=== PATIENT | male | born 1955 | race Caucasian/White ===

== ENCOUNTER → 2022-01-26 08:45 | Outpatient (BNVA) | payer OTHER, SELFPAY | PROVIDERS: Family Provider Family Medicine; Visit Provider Family Medicine | DX: E21.3 Hyperparathyroidism, unspecified (principal); M10.9 Gout, unspecified; R73.9 Hyperglycemia, unspecified; I10 Essential (primary) hypertension | CPT/HCPCS: 80053; 80061; 83036; 84550 ==

== ENCOUNTER 2022-08-12 12:22 | Outpatient (CLI) | payer OTHER, SELFPAY ==
--- NOTE | 2022-08-12 12:35 | XR_ITS ---
WS: [id number] Exam: XR abdomen min 2V [id number] Date/Time of Exam: 08/12/2022 12:37 PM Reason For Exam: abdominal distention, constipation No bowel obstruction or free air. A 12 x 6 mm calcification is noted along the medial aspect of the l eft kidney and might represent a renal pelvic stone. Additional calcifications are seen over both kid neys and may represent renal calculi. No sign of organ enlargement. Regional bony elements are intact . XR/XR abdomen min 2V [id number] IMPRESSION: 1. 12 x 6 mm calcification seen along the medial left kidney that might represe nt a prominent stone in the left renal pelvis. There are also small calcificati ons superimposing both renal silhouettes that may represent renal stones. 2. No acute abdominal finding. Renal colic CT scan might be considered.
== END 2022-08-12 12:23 | disposition home or self-care (01) ==
LOC: RAD 12:26
PROVIDERS: PCP Family Medicine; Visit Provider Family Medicine
DX: K59.00 Constipation, unspecified (principal); R14.0 Abdominal distension (gaseous)
CPT/HCPCS: 74019

== ENCOUNTER 2022-09-10 07:45 | Outpatient (CLI) | payer OTHER, SELFPAY ==
--- NOTE | 2022-09-10 08:00 | CT_ITS ---
WS: [id number] CT ABDOMEN PELVIS TECHNIQUE: Noncontrast CT of the abdomen and pelvis with coronal and sagittal reformatted images. CLINICAL INFORMATION: follow up on xray showing possible renal stones COMPARISON: CT 2007 and radiograph August 12, 2022 DLP: 1148.[address] scans at [facility] use at least one of these dose optimization techniques: automated e xposure control; mA and/or kV adjustment per patient size (includes targeted exams where dose is matc hed to clinical indication); or iterative reconstruction. FINDINGS: 10 mm LEFT renal pelvic calculus at the UPJ with mild dilatation LEFT renal pelvis. This is new since 2007 and corresponds to the radiograph findings. LEFT ureter is decompressed. Tiny calyceal tip calc dalila LEFT kidney. Mild induration about the LEFT renal pelvis and UPJ. No hydronephrosis in RIGHT kidn ey. RIGHT ureter is decompressed. Tiny renal cortical cysts. 6 Lung bases are well aerated. Noncontrast liver is normal. Normal GE junction. Fatty atrophy of the pa ncreas. Adrenal glands are normal. Noncontrast gallbladder appears normal. Enlarged prostate measurin g 5.6 cm. Sigmoid diverticulosis. No evidence of acute diverticulitis. Normal appendix in the RIGHT l ower quadrant. Normal caliber abdominal aorta. Mild aortic calcification. Mild spondylitic changes. S light anterolisthesis L5 on S1. Spondylolysis. CT/CT kidney stone [id number] IMPRESSION: 1. 10 mm LEFT renal pelvic calculus at the UPJ with mild dilatation of the LEF T renal pelvis and slight induration. This corresponds to the radiographic find ings. 2. No hydronephrosis in RIGHT kidney. Both ureters are decompressed. 3. Enlarged prostate measuring 5.6 CCM. Recommend correlation PSA. 4. Slight anterolisthesis L5 on S1 with chronic spondylolysis.
== END 2022-09-10 07:46 | disposition home or self-care (01) ==
LOC: RAD 07:53
PROVIDERS: PCP Family Medicine; Visit Provider Family Medicine
DX: N20.0 Calculus of kidney (principal); R10.9 Unspecified abdominal pain
CPT/HCPCS: 74176